=== PATIENT | male | born 1960 | race Caucasian/White ===

== ENCOUNTER 2018-05-13 17:27 | Emergency (ER) | payer OTHER ==
[~2018-05-13] VITALS: Ht 182.9 cm; Wt 89.0 kg
[2018-05-13 18:40] LABS: BASOPHILS # (AUTO) 0.02 x10^3/uL (0-0.1); BASOPHILS % (AUTO) 0 % (0-1); EOSINOPHILS # (AUTO) 0.43 x10^3/uL (0-0.4); EOSINOPHILS % (AUTO) 8 % (1-7); LYMPHOCYTES # (AUTO) 1.07 x10^3/uL (1-3.4); LYMPHOCYTES % (AUTO) 19 % (22-44); MD NO; MEAN CORPUSCULAR HEMOGLOBIN 35.7 pg (27.5-34.5); MEAN CORPUSCULAR HGB CONC 34.8 g/dL (33.2-36.2); MEAN CORPUSCULAR VOLUME 102.7 fL (81-97); MEAN PLATELET VOLUME 7.4 fL (7.4-10.4); MONOCYTES # (AUTO) 0.36 x10^3/uL (0.2-0.8); MONOCYTES % (AUTO) 6 % (2-9); NEUTROPHILS # (AUTO) 3.75 x10^3/uL (1.8-6.8); NEUTROPHILS % (AUTO) 67 % (42-75); PLATELET COUNT 230 x10^3/uL (130-400); RED BLOOD COUNT 4.47 x10^6/uL (4.38-5.82); RED CELL DISTRIBUTION WIDTH 13.5 % (9.4-14.8)
[2018-05-13 18:46] LABS: ALBUMIN 3.1 g/dL (3.4-5.0); ANION GAP 7 mmol/L (5-15); CALCIUM 8.1 mg/dL (8.5-10.1); CHLORIDE 107 mmol/L (98-107)
[2018-05-13 18:51] LABS: ALANINE AMINOTRANSFERASE 27 U/L (12-78); ALKALINE PHOSPHATASE 51 U/L (45-117); BILIRUBIN,TOTAL 0.2 mg/dL (0.2-1.0); CREATININE 0.95 mg/dL (0.7-1.3); TOTAL PROTEIN 7.2 g/dL (6.4-8.2); TROPONIN I < 0.015 ng/mL (0.000-0.045)
[2018-05-13 19:55] VITALS: BP 109/62
== END 2018-05-13 19:58 | disposition home or self-care (01) ==
LOC: ED 18:50
DX: R06.00 Dyspnea, unspecified (principal); J44.9 Chronic obstructive pulmonary disease, unspecified; F10.129 Alcohol abuse with intoxication, unspecified; Z76.0 Encounter for issue of repeat prescription
CPT/HCPCS: 36415; 71045; 80053; 84484; 85025; 93005; 99285

== ENCOUNTER 2018-10-31 10:52 | Emergency (ER) | payer OTHER ==
[~2018-10-31] VITALS: Ht 182.9 cm; Wt 91.0 kg
[2018-10-31 12:46] VITALS: BP 135/74
== END 2018-10-31 12:54 | disposition home or self-care (01) ==
LOC: ED 12:45
DX: J44.1 Chronic obstructive pulmonary disease with (acute) exacerbation (principal)
CPT/HCPCS: 71046; 93005; 99283

== ENCOUNTER 2019-04-11 21:02 | Emergency (ER) | payer OTHER ==
[~2019-04-11] VITALS: Ht 177.8 cm; Wt 80.0 kg
[2019-04-11] MEDS ORDERED: ALBUTEROL/IPRATROPIUM 2.5MG/0.5MG, 3 ML ONE (21:27)
[2019-04-11] MEDS ORDERED: ALBUTEROL/IPRATROPIUM 2.5MG/0.5MG, 3 ML NPPB ONE (21:30)
--- NOTE | 2019-04-11 21:30 | NUR ---
PT REFUSING CHEST XRAY AT THIS TIME TELL. YELLING AT RN THAT "THIS SHIT ISN'T NECESSARY".
[2019-04-11] MEDS ORDERED: TRAZ-137 PO (21:35)
[2019-04-11] MEDS ORDERED: FLUO20CA8 PO (21:35)
[2019-04-11 21:58] LABS: BASOPHILS # (AUTO) 0.01 x10^3/uL (0-0.1); BASOPHILS % (AUTO) 0 % (0-1); EOSINOPHILS # (AUTO) 0.07 x10^3/uL (0-0.4); EOSINOPHILS % (AUTO) 1 % (1-7); LYMPHOCYTES # (AUTO) 0.91 x10^3/uL (1-3.4); LYMPHOCYTES % (AUTO) 18 % (22-44); MD NO; MEAN CORPUSCULAR HEMOGLOBIN 36.9 pg (27.5-34.5); MEAN CORPUSCULAR HGB CONC 34.1 g/dL (33.2-36.2); MEAN CORPUSCULAR VOLUME 108.1 fL (81-97); MEAN PLATELET VOLUME 7.1 fL (7.4-10.4); MONOCYTES % (AUTO) 6 % (2-9); NEUTROPHILS % (AUTO) 75 % (42-75); PLATELET COUNT 193 x10^3/uL (130-400); RED BLOOD COUNT 4.18 x10^6/uL (4.38-5.82); RED CELL DISTRIBUTION WIDTH 14.1 % (9.4-14.8)
[2019-04-11 21:59] LABS: MICROSCOPIC NOT IND
[2019-04-11 22:00] LABS: CULTURE INDICATED? NO
--- NOTE | 2019-04-11 22:00 | NUR ---
PT YELLING AT RN THAT HE WANTS TO GO HOME. PT PULLED OFF ALL MONITORS AND IS REFUSING BLOOD DRAW. PT CONT TO ESCALATE, SECURITY AT BEDSIDE AND INFORMED THAT IF HE DOES NOT COOPERATE, WE WOULD THEN BE RESTRAINED TO THE GURNEY. PT COMPLIED WITH SECURITY REQUEST TO STAY IN [facility].
[2019-04-11 22:10] LABS: ALANINE AMINOTRANSFERASE 30 U/L (12-78); ALBUMIN 3.2 g/dL (3.4-5.0); ANION GAP 9 mmol/L (5-15); CALCIUM 7.7 mg/dL (8.5-10.1); CHLORIDE 110 mmol/L (98-107); CREATININE 0.89 mg/dL (0.7-1.3); SALICYLATE LEVEL 4.7 mg/dL (2.8-20.0)
[2019-04-11 22:11] LABS: ACETAMINOPHEN < 2 mcg/mL (10-30)
[2019-04-11 22:11] LABS: AMPHETAMINE SCREEN, URINE Negative (Negative); BARBITURATE SCREEN, URINE Negative (Negative); BENZODIAZEPINE SCREEN, URINE Negative (Negative); CANNABINOID SCREEN, URINE Negative (Negative); COCAINE SCREEN, URINE Negative (Negative); METHADONE SCREEN, URINE Negative (Negative); OPIATE SCREEN, URINE Negative (Negative)
[2019-04-11 22:13] LABS: ALKALINE PHOSPHATASE 51 U/L (45-117); BILIRUBIN,TOTAL 0.2 mg/dL (0.2-1.0); TOTAL PROTEIN 6.7 g/dL (6.4-8.2)
--- NOTE | 2019-04-11 22:25 | NUR ---
AYAD MUÑOZ AT BEDSIDE TO EXPLAIN PLAN OF CARE WITH LEGAL HOLD. PT VERBALIZED UNDERSTANDING AND STATES HE WILL COMPLY WITH POC.
--- NOTE | 2019-04-11 23:19 | NUR ---
Sterling cavanaugh in ED - 04/11/19 at 2319 by MAU PT SLEEPING ON GURNEY, SITTER AT DOORWAY. VSS AND WILL CONT TO MONITOR.
--- NOTE | 2019-04-11 23:20 | NUR ---
PT SLEEPING ON GURNEY, SITTER AT DOORWAY. VSS AND WILL CONT TO MONITOR.
--- NOTE | 2019-04-12 00:43 | NUR ---
REPORT RECIEVED FROM SHANNON CARRILLO. REPEAT EKG DONE. PT SLEEPING. VSS. SITTER AT BEDSIDE.
--- NOTE | 2019-04-12 01:59 | NUR ---
PT SLEEPING. SITTER AT DOORWAY.
--- NOTE | 2019-04-12 02:56 | NUR ---
PT SLEEPING WITH SITTER AT DOORWAY. VSS.
--- NOTE | 2019-04-12 03:27 | NUR ---
PT AROUSES TO VERBAL STIMULI. VSS. SITTER AT DOORWAY.
--- NOTE | 2019-04-12 04:06 | NUR ---
PT SLEEPING. VSS. SITTER AT DOORWAY.
--- NOTE | 2019-04-12 05:04 | NUR ---
PT SLEEPING. VSS. SITTER AT DOORWAY. BREAKFAST TRAY ORDERED.
--- NOTE | 2019-04-12 06:08 | NUR ---
PT SPOKE WITH ELIJAH. PT PLACED ON REGULAR BED. UPDATED ON POC. PT COOPERATIVE AND THANKFUL. PT DOES WEAR HOME O2 AT NIGHT WHILE HE SLEEPS. VSS. SITTER AT DOORWAY.
--- NOTE | 2019-04-12 07:00 | NUR ---
REPORT TO MATTI CARRILLO.
[2019-04-12 09:30] VITALS: BP 144/73
--- NOTE | 2019-04-12 11:08 | NUR ---
Assessed pt regarging O2. The pt states that he has to have O2 when he sleeps due to desatting. He states that he has been on O2 for a while.
--- NOTE | 2019-04-12 14:00 | NUR ---
PACKET FAXED TO [facility]
--- NOTE | 2019-04-12 19:06 | NUR ---
SBAR HAND-OFF GIVEN TO LORENA CHURCH.
--- NOTE | 2019-04-12 19:14 | NUR ---
RECEIVED BS REPORT FROM LORENA JUÁREZ TO ASSUME CARE OF PT. PT. RESTING ON GURNEY WITH ALL MONITORS IN PLACE. PT. EATING FROM DINNER TRAY THAT WAS PROVIDED BY MARQU[facility]. PT. HAS TV ON AND DENIES NEEDS AT THIS TIME. ROOM IS NOT SECURE MONITORS ARE BEING USED. SITTER IS IN [place] IN DIRECT VIEW. PT. DENIES ANY NEEDS AT THIS TIME.
--- NOTE | 2019-04-12 20:28 | NUR ---
PT. CONTINUES RESTING ON HOSPITAL BED WITH NADN. DENIES NEEDS. TV REMAINS ON. SITTER IN [place]. ALL MONITORS REMAIN IN PLACE.
--- NOTE | 2019-04-12 21:11 | NUR ---
PT. CONTINUES RESTING ON HOSPITAL BED WITH NADN. TV REMAINS ON AND PT. APPEARS TO BE WATCHING TV. MONITORS REMAIN IN PLACE. SITTER IN DIRECT VIEW. ALL SAFETY MEASURES MAINTAINED. PT. DENIES NEEDS.
--- NOTE | 2019-04-12 21:55 | NUR ---
PT. AMBULATED TO BR WITH STEADY GAIT AND BACK TO ROOM. ALL MONITORS REMOVED PT. REMAINS STABLE AND CONTIUOUS MONITORING NO LONGER NECESSARY. NSR ON MONITOR WAS NOTED SINCE TAKING OVER CARE OF THIS PT. ROOM IS HALF SECURED O2 IS NEEDED FOR SLEEP PER PT.
--- NOTE | 2019-04-12 23:04 | NUR ---
PT. CONTINUES RESTING ON BED WITH NADN. TV REMAINS ON; PT. HAS EYES OPEN IN DIRECTION OF TV. PT. DENEIS ANY NEEDS "EXCEPT TO GET OUT OF HERE." PT. DOES VERBALIZE UNDERSTANDING OF LEGAL HOLD. PT. STATES TO THIS RN "MY THOUGHT I WAS TRYING TO KILL MYSELF BECAUSE SHE FOUND AN EMPTY BOTTLE OF TRAZODONE AND PROZAC IN THE BATHROOM TRASH. THOSE WERE EMPTY BOTTLE, ALL I TOOK WAS MY NORMAL DOSE." PT. DENEIS NEEDS. SITTER IN [place]. ALL SAFETY MEASURES OBSERVED.
--- NOTE | 2019-04-12 23:55 | NUR ---
PT. PROVIDED WITH WATER PER REQUEST. DENIES OTHER NEES. SAFETY MEASURES MAINTAINED. SITTER IN [place].
--- NOTE | 2019-04-13 01:16 | NUR ---
PT. RESTING ON BED WITH EYES OPEN AND TV ON. PT. DENIES ANY NEEDS AT THIS TIME. SITTER IN DIRECT VIEW.
--- NOTE | 2019-04-13 01:49 | NUR ---
TASK RN: PT AWAKE, RESTING CALMLY IN [facility]. NAD NOTED. SITTER AT DOORWAY
--- NOTE | 2019-04-13 02:38 | NUR ---
PT. CONTINUES RESTING ON BED WITH EYES OPEN. NADN. DENIES NEEDS. SITTER IN [place]. ALL SAFETY MEASURES OBSERVED.
--- NOTE | 2019-04-13 02:44 | NUR ---
IV D/C THERE IS NO LONGER A MEDIAL NEED FOR IT. PT. IS VERY CALM AND COOPERATIVE WITH STAFF.
--- NOTE | 2019-04-13 03:47 | NUR ---
PT. RESTING ON BED WITH EYES CLOSED IN SUPINE POSITION. EVEN CHEST RISE/FALL VISIBLE. NADN. ROOM REMAINS SECURED. SITTER IN [place].
--- NOTE | 2019-04-13 03:48 | NUR ---
ROOM IS HALF SECURED. O2 IS IN USE.
--- NOTE | 2019-04-13 04:56 | NUR ---
PT. CONTINUES RESTING ON BED WITH EYES CLOSED. LEFT SIDE LYING. O2 IN USE. RESP VISIBLE AND NON-LABORED. SITTER IN [place].
--- NOTE | 2019-04-13 06:41 | NUR ---
PT. RESTING ON GURNEY WITH EYES OPEN, TV ON. DENIES NEEDS. BREAKFAST TRAY HAS BEEN ORDERED. SITTER IN [place].
--- NOTE | 2019-04-13 06:54 | NUR ---
REPORT TO LORENA DIETZ.
--- NOTE | 2019-04-13 07:07 | NUR ---
Pt resting in bed, NAD. Denies SI at this time. Denies that there was ever an SA. Pt calm and cooperative.
--- NOTE | 2019-04-13 10:11 | NUR ---
Report to SOC. Camera in room. Pt NAD.
--- NOTE | 2019-04-13 11:17 | NUR ---
Per SOC, hold lifted. Pt awaiting to be seen by [facility].
--- NOTE | 2019-04-13 12:22 | NUR ---
TASK RN: STILL AWAITING HOSPITALIST AT THIS TIME.
[2019-04-13 15:42] VITALS: BP 144/83
== END 2019-04-13 15:47 | disposition home or self-care (01) ==
LOC: ED 22:21 → EDIP 04-12 03:30 → UNDOADMIN 04-12 03:30 → ED 04-13 15:47
DX: T43.221A Poisoning by selective serotonin reuptake inhibitors, accidental (unintentional), initial encounter (principal); R45.851 Suicidal ideations; J44.9 Chronic obstructive pulmonary disease, unspecified; Y92.9 Unspecified place or not applicable
CPT/HCPCS: 36415; 80053; 80307; 81003; 83735; 85025; 93005; 94640; 99291; J7620

== ENCOUNTER 2019-06-14 08:42 | Emergency (ER) | payer OTHER ==
[~2019-06-14] VITALS: Ht 172.7 cm; Wt 81.0 kg
[~2019-06-14 08:42] MED LIST: FLUO20CA8 PO; TRAZ-137 PO
--- NOTE | 2019-06-14 09:10 | NUR ---
PROVIDER TO BEDSIDE-TO URGENTLY CALL CARDIOLOGY (AVOID FULL STEMI ACTIVATION) ECG MACHINE INTERPRETS ECG STEMI BUT ER PROVIDER QUESTIONING MACHINE READ. TO ADMINISTER ASA, PLACE PIV VS REMAIN STABLE ON BURRER HAND, DIAPHORESIS IMPROVED, PLACED ON 2L NC PER PROVIDER FOR POX OF 89%
[2019-06-14] MEDS ORDERED: ASPIRIN 81 MG TABLET CHEW ONE (09:15)
--- NOTE | 2019-06-14 09:18 | NUR ---
CXR AT BEDSIDE
--- NOTE | 2019-06-14 09:20 | NUR ---
MEDICATED PER EMAR-162MG OF ASA
--- NOTE | 2019-06-14 09:25 | NUR ---
MARKETING SALES SUPERVISOR TO ER EVALUATING PATIENT
--- NOTE | 2019-06-14 09:26 | NUR ---
PIV PLACED FROM WHICH LABS WERE SENT
[2019-06-14] MEDS ORDERED: ASPIRIN 81 MG TABLET CHEW PO ONE (09:30)
[2019-06-14] MEDS ORDERED: SODIUM CHLORIDE FLUSH 10ML SYR IVF ONE (09:30)
[2019-06-14] MEDS ORDERED: VITA1TAB PO (09:37)
[2019-06-14] MEDS ORDERED: CHOL100011 PO (09:37)
[2019-06-14 09:41] LABS: MEAN CORPUSCULAR HGB CONC 34.3 g/dL (33.2-36.2); MEAN CORPUSCULAR VOLUME 110.8 fL (81-97); MEAN PLATELET VOLUME 7.1 fL (7.4-10.4); PLATELET COUNT 193 x10^3/uL (130-400); RED BLOOD COUNT 4.62 x10^6/uL (4.38-5.82); RED CELL DISTRIBUTION WIDTH 13.8 % (9.4-14.8)
--- NOTE | 2019-06-14 09:56 | NUR ---
PATIENT REMINEDED OF IMPORTANCE OF UA FOR FULL EVAL. PATIENT UP TO VOID UNABLE-PROVIDE RMADE AWARE.
--- NOTE | 2019-06-14 10:00 | NUR ---
REPORT TO RONALD CARRILLO
[2019-06-14 10:03] LABS: BASOPHILS # (AUTO) 0.03 x10^3/uL (0-0.1); BASOPHILS % (AUTO) 1 % (0-1); EOSINOPHILS # (AUTO) 0.18 x10^3/uL (0-0.4); EOSINOPHILS % (AUTO) 4 % (1-7); LYMPHOCYTES % (AUTO) 27 % (22-44); MD SCAN; MONOCYTES # (AUTO) 0.47 x10^3/uL (0.2-0.8); MONOCYTES % (AUTO) 11 % (2-9); NEUTROPHILS # (AUTO) 2.63 x10^3/uL (1.8-6.8); NEUTROPHILS % (AUTO) 58 % (42-75)
[2019-06-14 10:14] LABS: ALANINE AMINOTRANSFERASE 31 U/L (12-78); ALBUMIN 3.4 g/dL (3.4-5.0); ANION GAP 10 mmol/L (5-15); CALCIUM 8.2 mg/dL (8.5-10.1); CHLORIDE 112 mmol/L (98-107)
[2019-06-14 10:19] LABS: ALKALINE PHOSPHATASE 46 U/L (45-117); BILIRUBIN,TOTAL 0.2 mg/dL (0.2-1.0); CREATININE 0.92 mg/dL (0.7-1.3); T4 (THYROXINE) 7.2 mcg/dL (4.5-12.1); TROPONIN I < 0.015 ng/mL (0.000-0.045)
[2019-06-14 10:49] VITALS: BP 124/73
--- NOTE | 2019-06-14 10:50 | NUR ---
pt in bed resting. 2nd bottle of water given. instructed to urinate and urinal is provided.
== END 2019-06-14 11:35 | disposition home or self-care (01) ==
LOC: ED 09:41
DX: R55 Syncope and collapse (principal); F10.120 Alcohol abuse with intoxication, uncomplicated; J44.9 Chronic obstructive pulmonary disease, unspecified
CPT/HCPCS: 71045; 80053; 80307; 82962; 83735; 84436; 84443; 84484; 85025; 93005; 99284

== ENCOUNTER 2021-04-11 02:46 | Emergency (ER) | payer OTHER ==
[~2021-04-11] VITALS: Ht 182.9 cm; Wt 82.0 kg
[~2021-04-11 02:46] MED LIST changes: +CHOL100011 PO; +FLUO20CA23 PO; -FLUO20CA8 PO; +FOLI1TAB32 PO; -TRAZ-137 PO; +TRAZ-175 PO; +VITA1TAB PO
--- NOTE | 2021-04-11 03:05 | NUR ---
KARAN FROM HOME. PT ROOMMATE CALLED BECAUSE THEY FOUND THE PT UNCONSCIOUS AT HOME AND HAVING TROUBLE BREATHING. EMS REPORTS PT WAS WHEEZING WHEN THEY FOUND HIM AND GAVE ALBUTEROL AND DUONEB TX WHICH HELPED PT BREATH BETTER. PT APPEARS VERY INTOXICATED AND STATES HE DOES NOT KNOW HOW MUCH HE DRANK. ATTACHED TO CARDIAC/SP02/BP MONITORS. VSS. EKG COMPLETED. PT ALSO NOTED TO HAVE APNIC AND UNCONSCIOUS EPISODES. BED IN LOW POSITION, CALL LIGHT WITHIN REACH. RAILS ENGAGED. TM
[2021-04-11 03:20] LABS: BASOPHILS % (AUTO) 1 % (0-1); EOSINOPHILS % (AUTO) 2 % (1-7); LYMPHOCYTES % (AUTO) 33 % (22-44); MEAN CORPUSCULAR HEMOGLOBIN 38.3 pg (27.5-34.5); MEAN CORPUSCULAR HGB CONC 34.5 g/dL (33.2-36.2); MONOCYTES % (AUTO) 12 % (2-9); NEUTROPHILS % (AUTO) 53 % (42-75); PLATELET COUNT 172 x10^3/uL (130-400); RED BLOOD COUNT 4.39 x10^6/uL (4.38-5.82)
[2021-04-11] MEDS ORDERED: ASPIRIN 81 MG TABLET CHEW PO ONE (03:30)
[2021-04-11 03:32] LABS: ALANINE AMINOTRANSFERASE 35 U/L (12-78); ALBUMIN 3.2 g/dL (3.4-5.0); ANION GAP 6 mmol/L (5-15); CALCIUM 7.8 mg/dL (8.5-10.1); CHLORIDE 108 mmol/L (98-107); CREATININE 0.79 mg/dL (0.7-1.3)
[2021-04-11 03:37] LABS: ALKALINE PHOSPHATASE 56 U/L (45-117); BILIRUBIN,TOTAL 0.3 mg/dL (0.2-1.0); TOTAL PROTEIN 7.2 g/dL (6.4-8.2); TROPONIN I 0.025 ng/mL (0.000-0.045)
[2021-04-11 03:44] LABS: MD SCAN
[2021-04-11] MEDS ORDERED: ASPIRIN 81 MG TABLET CHEW ONE (03:45)
--- NOTE | 2021-04-11 03:51 | NUR ---
PT RESTING IN BED. NADN. CONTINOUS CARDIAC/SP02/ BP MONITORING VSS WCTM
--- NOTE | 2021-04-11 04:52 | NUR ---
PT SLEEPING IN BED. NADN. AKIKO LIGHT WITHIN REACH. CONTINOUS MONITORING. VSS. WCTM
--- NOTE | 2021-04-11 05:40 | NUR ---
PT SLEEPING IN BED. CONENECTED TO CARD/SP02/BP MONITORS. VSS. CALL LIGHT WTITHIN REACH. NADN. RAILS ENGAGED. BED IN LOW POSITION. WCTM.
--- NOTE | 2021-04-11 06:34 | NUR ---
PT AMBULATED TO BATHROOM WITH STEADY GAIT WITH NON SLIP SOCKS ON. SPEAKING WITHOUT SLURRING WORDS. PT GIVEN WATER AND CRACKERS 30 MINS PRIOR TO HELP SOBER UP.
[2021-04-11 06:56] VITALS: BP 128/77
--- NOTE | 2021-04-11 06:56 | NUR ---
Patient given discharge instructions and they have confirmed that they understand the instructions. Patient ambulatory with steady gait.
== END 2021-04-11 06:59 | disposition home or self-care (01) ==
LOC: ED 03:46
DX: J44.9 Chronic obstructive pulmonary disease, unspecified (principal); F10.220 Alcohol dependence with intoxication, uncomplicated; Y90.0 Blood alcohol level of less than 20 mg/100 ml
CPT/HCPCS: 36415; 71045; 80053; 80320; 84484; 85025; 93005; 99285; G0480

== ENCOUNTER 2021-06-15 20:00 | Emergency (ER) | payer OTHER ==
[~2021-06-15] VITALS: Ht 170.2 cm; Wt 85.0 kg
--- NOTE | 2021-06-15 20:06 | NUR ---
PATIENT BROUGHT IN BY EMS AFTER FRIEND FOUND PATIENT UNRESPONSIVE. +ETOH TODAY. PATIENT C/O OF SOB SINCE THIS AFTERNOON. DENIES CHEST PAIN. BED IN LOW POSITION. CALL [place] IN REACH. AWAITING ERP.
--- NOTE | 2021-06-15 20:15 | NUR ---
RA SP02 88%. PLACED ON 4LNC. SPO2 NOW 92%.
--- NOTE | 2021-06-15 20:58 | NUR ---
JENARO SWAB WALKED TO LAB BY THIS RN.
[2021-06-15] MEDS ORDERED: SODIUM CHLORIDE FLUSH 10ML SYR IVF ONE (21:00)
[2021-06-15 21:39] LABS: MEAN CORPUSCULAR HEMOGLOBIN 38.3 pg (27.5-34.5); MEAN CORPUSCULAR HGB CONC 34.8 g/dL (33.2-36.2); MEAN PLATELET VOLUME 6.8 fL (7.4-10.4); PLATELET COUNT 224 x10^3/uL (130-400); RED BLOOD COUNT 3.95 x10^6/uL (4.38-5.82); RED CELL DISTRIBUTION WIDTH 14.5 % (9.4-14.8)
[2021-06-15 21:47] LABS: ALANINE AMINOTRANSFERASE 66 U/L (12-78); ALBUMIN 2.8 g/dL (3.4-5.0); CALCIUM 7.6 mg/dL (8.5-10.1); CHLORIDE 109 mmol/L (98-107)
[2021-06-15 21:49] LABS: ALKALINE PHOSPHATASE 58 U/L (45-117); BILIRUBIN,TOTAL 0.2 mg/dL (0.2-1.0); CREATININE 0.77 mg/dL (0.7-1.3); TOTAL PROTEIN 6.8 g/dL (6.4-8.2)
[2021-06-15 21:54] LABS: ANION GAP 4 mmol/L (5-15)
[2021-06-15 22:00] VITALS: BP 112/59
[2021-06-15 22:11] LABS: BANDS%(MANUAL) 4 % (0-7); LYMPH#(MANUAL) 0.29 x10^3/uL (1-3.4); LYMPHS% (MANUAL) 11 % (22-44); MONOS#(MANUAL) 0.16 x10^3/uL (0.3-2.7); MONOS% (MANUAL) 6 % (2-9); MYELOCYTES# (MANUAL) 0.03 x10^3/uL (0-0); MYELOCYTES% (MANUAL) 1 % (0-0); SEG#(MANUAL) 2.03 x10^3/uL (1.8-6.8); SEGS% (MANUAL) 78 % (42-75)
[2021-06-15 22:12] LABS: ANISOCYTOSIS 1+
[2021-06-15 22:14] LABS: <PLATELET ESTIMATE> ADEQUATE; SMALL PLATELETS 1+
--- NOTE | 2021-06-15 23:32 | NUR ---
CALLED SHERRY LARIOS TO REPORT PATIENT ELOPED WITH IV IN PLACE.
--- NOTE | 2021-06-15 23:34 | NUR ---
Called DC to set up delivery of oxgyen tank for home oxgyen already established. I spoke with Vladimir at [facility] [phone] who gave me information for [employer] . I called [employer] and they are paging local tech. Waiting for call back from [employer] local tech.
== END 2021-06-15 23:38 ==
LOC: ED 23:32
DX: I50.1 Left ventricular failure, unspecified (principal); J43.9 Emphysema, unspecified; I45.19 Other right bundle-branch block; Z20.822 Contact with and (suspected) exposure to COVID-19; F17.200 Nicotine dependence, unspecified, uncomplicated
CPT/HCPCS: 36415; 71045; 80053; 80320; 83605; 84145; 85025; 87040; 93005; 99285; U0003; U0005; G0480